=== PATIENT | female | born 1995 | race African-American/Black ===

== ENCOUNTER 2022-10-11 14:05 | Emergency (ER) | payer OTHER, SELFPAY ==
--- NOTE | ~2022-10-11 | US_ITS ---
EXAMINATION: US transvaginal DATE: 10/11/2022 15:42 INDICATION: Abnormal vaginal bleeding. TECHNIQUE: Multiple transabdominal and endovaginal sonographic images of the pelvis were obtained. COMPARISON: None. FINDINGS: Uterus: 7.8 x 4.0 x 4.3 cm. Heterogeneous appearing myometrium with slightly increased vascularity. E ndometrial complex is heterogeneous and measures 6 mm. Suggestion of transitional zone thickening. Right Ovary: 2.3 x 3.1 x 1.5 cm. Vascular flow is present. No adnexal mass. Left Ovary: 1.7 x 1.9 x 1.8 cm. Vascular flow is present. No adnexal mass. There is no free fluid in the pelvis. IMPRESSION: Uterine and endometrial findings may represent adenomyosis. Consider gynecology referral and nonemerg ent, outpatient MR of the pelvis. Reviewed, dictated and finalized at [facility]. IMPRESSION: Uterine and endometrial findings may represent adenomyosis. Consider gynecology referral and nonemergent, outpatient MR of the pelvis.
[2022-10-11 14:10] VITALS: BP 146/97; PULSE 75; RESP 16; TEMP 36.2; O2SAT 100
--- NOTE | 2022-10-11 14:40 | ED.FEMALEGU ---
HPI - Female Genitourinary General Chief complaint: Vaginal Bleeding Stated complaint: vaginal bleeding Time Seen by Provider: 10/11/22 14:27 Source: patient and RN notes reviewed Mode of arrival: ambulatory Limitations: no limitations History of Present Illness HPI Narrative: THis is a 27 year old female who presents for evaluation of vaginal lump and heavy vaginal bleeding. Patient states she has not had a menstrual cycle in almost 1.5 years. She developed abdominal cramping on and then she reports having heavy vaginal bleeding on Sunday. She reports feeling lightheaded. She has used only 3 pads today. She reports that she has been having clots. She also reports painless knot in her vaginal that she would like to be evaluated. 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 She went to urgent care in [place] to get irregular period evaluation. She was on depo shot almost 10 years ago but no control since. Review of Systems Review of Systems: All systems reviewed & are unremarkable except as noted in HPI and below PMFSH Past Medical History Medical History (Updated 10/11/22 @ 16:32 by Delia Agee MD) Bipolar disorder Surgical History Surgical History (Updated 10/11/22 @ 16:28 by Delia Agee MD) No pertinent past surgical history Social History Social History (Updated 10/11/22 @ 20:43 by Delia Agee MD) Substance use: never Exam Const: General: no acute distress and alert Nutritional Appearance: obese Orientation/consciousness: patient oriented x3 HENMT: Head: normal to inspection Eyes: Conjunctivae: conjunctivae normal EOM: EOMs intact bilaterally Chest: Chest palpation & inspection: normal inspection of the chest Resp: Effort & Inspection: normal respiratory effort GI: GI Palp: Yes Soft to palpation, No Tenderness to palpation present (GI), No Guarding due to palpation present (GI) and No Rigid due to palpation Auscultation: normal bowel sounds : Speculum Exam - Cervix: Cervical os closed Bimanual exam- vagina & uterus: no cervical motion tenderness Other: inner upper labial nontender mass, no erythema; small amount of dark blood in vaginal vault, no clots. Skin: General skin exam: normal color Rashes: no rashes Wounds: no wounds Neuro: General: patient oriented x3, moves all extremities and CN's II-XI intact bilaterally Gait exam (Neuro): Normal gait present Extrem: General: normal to inspection Psych: Appearance: grossly normal Mental Status: mental status grossly normal Affect: normal affect Attitude: cooperative Course Reevaluation(s) Reevaluation #1: I Discussed with patient that US shows adenomyosis and I discussed she will need follow up with OB. Bleeding is minimal. Date: 10/11/22 Time: 16:29 Vital Signs Vital signs: Vital Signs Temperature 97.1 F L 10/11/22 14:10 Pulse Rate 75 10/11/22 14:10 Respiratory Rate 16 10/11/22 14:10 Blood Pressure 146/97 H 10/11/22 14:10 Pulse Oximetry 100 10/11/22 14:10 Oxygen Delivery Room Air 10/11/22 14:10 Temperature 97.1 F L 10/11/22 14:10 Pulse Rate 75 10/11/22 14:10 Respiratory Rate 16 10/11/22 14:10 Blood Pressure 146/97 H 10/11/22 14:10 Pulse Oximetry 100 10/11/22 14:10 Oxygen Delivery Room Air 10/11/22 14:10 MDM - Female Genitourinary Differential Diagnosis Differential diagnosis: Likely ovarian cyst, ruptured ovarian cyst, cyst of Bartholin's gland, dysmenorrhea and other (uterine fibriods, PCOS) Lab Data Attestation: I reviewed the patient's lab results. 10/11/22 15:41 Labs: Lab Results 10/11/22 Range/Units 15:41 WBC 6.6 (4.5-10.0) K/mm3 RBC 4.74 (4.2-5.4) M/mm3 Hgb 11.8 L (12.0-15.0) g/dL Hct 37.9 (37.0-47.0) % MCV 80.0 (80-100) fl MCH 24.9 L (26-34) pg MCHC 31.1 L (32-36) g/dl RDW 15.2 H (11.5-14.5) % Plt Count 412 H (150-375) k/mm3 MPV 9.6 (7.4-10.4) fl Immature Gran % (Auto) 0.3 (0-0.5) %
[2022-10-11 15:46] LABS: Basophils Percent Auto 0.5 % (0.2-1.2); Eosinophils Absolute Auto 0.1 K/mm3 (0-0.3); Eosinophils Percent Auto 0.9 % (0-4.4); Hematocrit 37.9 % (37.0-47.0); Hemoglobin 11.8 g/dL (12.0-15.0); Immature Granulocyte Absolute 0.02 K/mm3 (0.00-0.031); Immature Granulocyte Percent A 0.3 % (0-0.5); Lymphocytes Absolute Auto 2.11 K/mm3 (0.9-3.2); Mean Corpuscular HGB Conc 31.1 g/dl (32-36); Mean Corpuscular Hemoglobin 24.9 pg (26-34); Mean Platelet Volume 9.6 fl (7.4-10.4); Monocytes Absolute Auto 0.5 K/mm3 (0.1-0.6); Monocytes Percent Auto 7.9 % (2.6-8.5); Neutrophils Absolute Auto 3.9 K/mm3 (1.3-6.7); Neutrophils Percent Auto 58.4 % (45.5-73.1); Platelet Count Result 412 k/mm3 (150-375); Red Blood Count 4.74 M/mm3 (4.2-5.4); Red Cell Distribution Width 15.2 % (11.5-14.5); White Blood Count 6.6 K/mm3 (4.5-10.0)
[2022-10-11 15:58] LABS: INR 1.1; Partial Thromboplastin Time 25.3 SECONDS (22.3-36.8); Prothrombin Time 15.2 Seconds (11.1-14.7)
[2022-10-11 16:13] LABS: Beta HCG Quantitative < 2.39 mIU/ML
== END 2022-10-11 16:46 | disposition home or self-care (01) ==
PROVIDERS: Emergency Provider General Practice
DX: N93.9 Abnormal uterine and vaginal bleeding, unspecified (principal); N80.03 Adenomyosis of the uterus
CPT/HCPCS: 36415; 76830; 81025; 84702; 85025; 85610; 85730; 99284